=== PATIENT | male | born 1995 | race Caucasian/White ===

== ENCOUNTER 2017-11-16 00:46 | Emergency (ER) | payer SELFPAY ==
[~2017-11-16] VITALS: Ht 190.5 cm; Wt 118.0 kg
[~2017-11-16 00:46] MED LIST: CEPH500C3 PO
[2017-11-16 00:51] VITALS: BP 143/65; PULSE 103; RESP 18; TEMP 98.4; O2SAT 96
[2017-11-16 01:49] LABS: AUTOMATED NEUTROPHIL # 4.2 TH/MM3 (1.8-7.7); BASOPHIL % 0.6 % (0.0-2.0); EOSINOPHIL # 0.2 TH/MM3 (0-0.4); EOSINOPHIL % 1.8 % (0.0-4.0); HEMATOCRIT 44.6 % (39.0-51.0); HEMOGLOBIN 15.7 GM/DL (13.0-17.0); LYMPH % 40.7 % (9.0-44.0); LYMPHOCYTE # 3.4 TH/MM3 (1.0-4.8); MEAN CELL VOLUME 88.6 FL (80.0-100.0); MEAN CORPUSCULAR HEMOGLOBIN 31.3 PG (27.0-34.0); MEAN CORPUSCULAR HGB CONC 35.3 % (32.0-36.0); MEAN PLATELET VOLUME 7.6 FL (7.0-11.0); MONO % 7.2 % (0.0-8.0); MONOCYTE # 0.6 TH/MM3 (0-0.9); NEUT % 49.7 % (16.0-70.0); PLATELET COUNT 311 TH/MM3 (150-450); RED BLOOD COUNT 5.03 MIL/MM3 (4.50-5.90); RED CELL DISTRIBUTION WIDTH 11.7 % (11.6-17.2); WHITE BLOOD COUNT 8.4 TH/MM3 (4.0-11.0)
[2017-11-16 02:05] LABS: ALKALINE PHOSPHATASE 68 U/L (45-117); TOTAL BILIRUBIN ADULT 0.7 MG/DL (0.2-1.0); TOTAL PROTEIN 7.8 GM/DL (6.4-8.2)
[2017-11-16 02:08] LABS: ALBUMIN 4.3 GM/DL (3.4-5.0); ALT (GPT) 30 U/L (12-78); AST (GOT) 30 U/L (15-37); BICARBONATE 25.6 MEQ/L (21.0-32.0); BLOOD UREA NITROGEN 14 MG/DL (7-18); CALCIUM 8.3 MG/DL (8.5-10.1); CHLORIDE 111 MEQ/L (98-107); CREATININE 1.26 MG/DL (0.60-1.30); GLOMERULAR FILTRATION RATE 70 ML/MIN (>89); GLUCOSE,RANDOM 99 MG/DL (74-106); SODIUM (NA) 148 MEQ/L (136-145)
[2017-11-16 02:11] LABS: ACETAMINOPHEN LESS THAN 2.0 MCG/ML (10.0-30.0)
--- NOTE | 2017-11-16 03:37 | PD ---
HPI Chief Complaint: Alcohol/Drug Intoxication Time Seen by Provider: 01:09 Travel History International Travel<30 days: No Contact w/Intl Traveler<30days: No Traveled to known affect area: No History of Present Illness HPI Patient is a 22-year-old male presenting to the emergency department voluntarily for psychiatric evaluation. Patient was brought in by the police. Patient reports that he has been drinking this evening. He states he feels depressed, this is been ongoing for a long time. He states that he feels suicidal and has thoughts of hurting himself. He reports a previous suicide attempt. He has no current plan. He denies any hallucinations or homicidal ideations. He denies any illicit drug use. He denies any excessive alcohol intake. Patient further denies any medical history. Symptom onset is unknown. [facility] Past Medical History Medical History: Denies Significant Hx Hypertension: Yes Tetanus Vaccination: < 5 Years Influenza Vaccination: No Past Surgical History Surgical History: Unable to Obtain Joint Replacement: Yes Social History Alcohol Use: Yes Tobacco Use: Yes (chewing) Substance Use: No Allergies-Medications (Allergen,Severity, Reaction): Coded Allergies: amoxicillin (Verified Allergy, Unknown, 11/16/17) Reported Meds & Prescriptions Reported Meds & Active Scripts Active Keflex (Cephalexin Monohydrate) 500 Mg Cap 500 Mg PO QID 7 Days Review of Systems Except as stated in HPI: all other systems reviewed are Neg Psychiatric: Positive: Depression, Suicidal Ideations, Substance Abuse Physical Exam Exam Limitations: Intoxication Narrative GENERAL: Well-developed, well-nourished, alert male. Appears intoxicated, in no acute distress. SKIN: Warm and dry. HEAD: Atraumatic. Normocephalic. EYES: Pupils equal and round. No scleral icterus. No injection or drainage. ENT: No nasal bleeding or discharge. Mucous membranes pink and moist. NECK: Trachea midline. No JVD. CARDIOVASCULAR: Regular rate and rhythm. RESPIRATORY: No accessory muscle use. Clear to auscultation. Breath sounds equal bilaterally. GASTROINTESTINAL: Abdomen soft, non-tender, nondistended. Hepatic and splenic margins not palpable. MUSCULOSKELETAL: Extremities without clubbing, cyanosis, or edema. No obvious deformities. NEUROLOGICAL: Awake and alert. No obvious cranial nerve deficits. Motor grossly within normal limits. Five out of 5 muscle strength in the arms and legs. Normal speech. PSYCHIATRIC: Depressed mood and affect; insight and judgment normal. Data Data Last Documented VS Vital Signs Date Time Temp Pulse Resp B/P (MAP) Pulse Ox O2 Delivery O2 Flow Rate FiO2 11/16/17 00:51 98.4 103 18 143/65 (91) 96 Orders Orders Complete Blood Count With Diff (11/16/17 01:14) Comprehensive Metabolic Panel (11/16/17 01:14) Thyroid Stimulating Hormone (11/16/17 01:14) Psych Screen (11/16/17 01:14) Drug Screen, Random Urine (11/16/17 01:14) Alcohol (Ethanol) (11/16/17 01:14) Salicylates (Aspirin) (11/16/17 01:14) Tylenol (Acetaminophen) (11/16/17 01:14) Labs Laboratory Tests Test 11/16/17 01:15 White Blood Count 8.4 TH/MM3 Red Blood Count 5.03 MIL/MM3 Hemoglobin 15.7 GM/DL Hematocrit 44.6 % Mean Corpuscular Volume 88.6 FL Mean Corpuscular Hemoglobin 31.3 PG Mean Corpuscular Hemoglobin Concent 35.3 % Red Cell Distribution Width 11.7 % Platelet Count 311 TH/MM3 Mean Platelet Volume 7.6 FL Neutrophils (%) (Auto) 49.7 % Lymphocytes (%) (Auto) 40.7 % Monocytes (%) (Auto) 7.2 % Eosinophils (%) (Auto) 1.8 % Basophils (%) (Auto) 0.6 % Neutrophils # (Auto) 4.2 TH/MM3 Lymphocytes # (Auto) 3.4 TH/MM3 Monocytes # (Auto) 0.6 TH/MM3 Eosinophils # (Auto) 0.2 TH/MM3 Basophils # (Auto) 0.0 TH/MM3 CBC Comment DIFF FINAL Differential Comment Blood Urea Nitrogen 14 MG/DL Creatinine 1.26 MG/DL Random Glucose 99 MG/DL Total Protein 7.8 GM/DL Albumin 4.3 GM/DL Calcium Level 8.3 MG/DL Alkaline Phosphatase 68 U/L Aspartate Amino Transf (AST/SGOT) 30 U/L Alanine Aminotransferase (ALT/SGPT) 30 U/L Total Bilirubin 0.7 MG/DL Sodium Level 148 MEQ/L Potassium Level 4.4 MEQ/L Chloride Level 111 MEQ/L Carbon Dioxide Level 25.6 MEQ/L Anion Gap 11 MEQ/L Estimat Glomerular Filtration Rate 70 ML/MIN Thyroid Stimulating Hormone 3rd Gen 0.950 uIU/ML Salicylates Level LESS THAN 1.7 MG/DL Acetaminophen Level LESS THAN 2.0 MCG/ML Ethyl Alcohol Level 290 MG/DL MDM Medical Decision Making Medical Screen Exam Complete: Yes Emergency Medical Condition: Yes Interpretation(s) Laboratory Tests Test 11/16/17 01:15 White Blood Count 8.4 TH/MM3 Red Blood Count 5.03 MIL/MM3 Hemoglobin 15.7 GM/DL Hematocrit 44.6 % Mean Corpuscular Volume 88.6 FL Mean Corpuscular Hemoglobin 31.3 PG Mean Corpuscular Hemoglobin Concent 35.3 % Red Cell Distribution Width 11.7 % Platelet Count 311 TH/MM3 Mean Platelet Volume 7.6 FL Neutrophils (%) (Auto) 49.7 % Lymphocytes (%) (Auto) 40.7 % Monocytes (%) (Auto) 7.2 % Eosinophils (%) (Auto) 1.8 % Basophils (%) (Auto) 0.6 % Neutrophils # (Auto) 4.2 TH/MM3 Lymphocytes # (Auto) 3.4 TH/MM3 Monocytes # (Auto) 0.6 TH/MM3 Eosinophils # (Auto) 0.2 TH/MM3 Basophils # (Auto) 0.0 TH/MM3 CBC Comment DIFF FINAL Differential Comment Blood Urea Nitrogen 14 MG/DL Creatinine 1.26 MG/DL Random Glucose 99 MG/DL Total Protein 7.8 GM/DL Albumin 4.3 GM/DL Calcium Level 8.3 MG/DL Alkaline Phosphatase 68 U/L Aspartate Amino Transf (AST/SGOT) 30 U/L Alanine Aminotransferase (ALT/SGPT) 30 U/L Total Bilirubin 0.7 MG/DL Sodium Level 148 MEQ/L Potassium Level 4.4 MEQ/L Chloride Level 111 MEQ/L Carbon Dioxide Level 25.6 MEQ/L Anion Gap 11 MEQ/L Estimat Glomerular Filtration Rate 70 ML/MIN Thyroid Stimulating Hormone 3rd Gen 0.950 uIU/ML Salicylates Level LESS THAN 1.7 MG/DL Acetaminophen Level LESS THAN 2.0 MCG/ML Ethyl Alcohol Level 290 MG/DL Vital Signs Date Time Temp Pulse Resp B/P (MAP) Pulse Ox O2 Delivery O2 Flow Rate FiO2 11/16/17 00:51 98.4 103 18 143/65 (91) 96 Differential Diagnosis Substance abuse versus intoxication versus metabolic abnormality versus depression versus suicidal ideations versus other Narrative Course Patient is a 22-year-old male presented to emerge department for psychiatric evaluation. Patient is clearly intoxicated. He reports feeling depressed and on more than one occasion reported suicidal ideations. For this reason the Santoro act was initiated. Mental health screening discussed with the patient. Psychiatric screen ordered. Labs reviewed, no acute findings identified. Patient is intoxicated with a blood alcohol level of 290. Patient is medically cleared for psych eval. Diagnosis Primary Impression: Medical clearance for psychiatric admission Additional Impression: Alcohol intoxication Qualified Codes: F10.920 - Alcohol use, unspecified with intoxication, uncomplicated Condition: Stable Elle Ibarra November 16, 2017 03:37
[2017-11-16 08:00] VITALS: BP 138/62; PULSE 74; RESP 16; TEMP 98.2; O2SAT 98
--- NOTE | 2017-11-16 09:55 | PD ---
History of Present Illness Chief Complaint: Alcohol/Drug Intoxication Time Seen by Provider: 09:10 Travel History International Travel<30 Days: No Contact w/Intl Traveler<30days: No Known affected area: No History of Present Illness: Patient is a 22 y/o male who was placed under a [place]oro Act by ELIZABETH Wilson. Santoro Act states, " patient has been depressed for awhile and states that has been thinking about killing himself. Reports previous attempts. Chart reviewed and discussed with ELIZABETH Rios and MILAN Viera. Patient in room D-47 in the Emergency Room sitting on the side of the bed. He is well nourished, well dressed and looks his stated age. Alert and oriented x 4. Steady gait. Good fund of knowledge. Good concentration and focus. Mood is euthymic and affect is consistent with mood . Patient states that he went out to a friend house last night and drank too much. He does recall being transported to the Emergency Department , but does not recall ever stating that he is depressed or suicidal. His alcohol level on admission to the ED was 290. He states that he lives in [place] with his roommates. 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 He has no past psychiatric history. He endorses no suicidal or homicidal ideations. He endorses no depression today. Patient is at low risk for self harm. Based on the patient's presentation will lift the Santoro Act. Dx: Mood Disorder, alcohol induced. PFSH Past Medical History Narrative Medical No past psychiatric history. Medical History: Denies Significant Hx Hypertension: Yes Tetanus Vaccination: < 5 Years Influenza Vaccination: No Past Surgical History Surgical History: Unable to Obtain Joint Replacement: Yes Psychiatric History Social History Hx Alcohol Use: Yes Hx Tobacco Use: Yes (chewing) Hx Substance Use: No Allergies-Medications (Allergen,Severity, Reaction): Coded Allergies: amoxicillin (Verified Allergy, Unknown, 11/16/17) Reported Meds & Prescriptions Reported Meds & Active Scripts Active Keflex (Cephalexin Monohydrate) 500 Mg Cap 500 Mg PO QID 7 Days Mental Status Examination Appearance: Appropriate Consciousness: Alert Orientation: x4 Motor Activity: Normal gait Speech: Unremarkable Language: Adequate Fund of Knowledge: Adequate Attention and Concentration: Adequate Memory: Unremarkable Mood: Appropriate Affect: Appropriate Thought Process & Associations: Intact Thought Content: Appropriate Hallucination Type: None Delusion Type: None Suicidal Ideation: No Suicidal Plan: No Suicidal Intention: No Homicidal Ideation: No Homicidal Plan: No Homicidal Intention: No Insight: Adequate Judgment: Adequate [facility] Medical Decision Making Medical Record Reviewed: Yes Assessment/Plan Patient is a 22 y/o male who presented to the Emergency Department under a [place] Act. Patient had an alcohol level of 290. This morning patient is alert and oriented,good concentration and focus, mood is euthymic. He acknowledges that he went to friends house and drank too much. He has no past psychiatric history. He endorses no suicidal or homicidal ideations. Patient is of low risk for self harm. Based on patient's presentation and assessment will lift the Santoro Act. Patient denies depression. He may follow up at [facility] if he feels that depression is of concern. Orders Orders Complete Blood Count With Diff (11/16/17 01:14) Comprehensive Metabolic Panel (11/16/17 01:14) Thyroid Stimulating Hormone (11/16/17 01:14) Psych Screen (11/16/17 01:14) Drug Screen, Random Urine (11/16/17 01:14) Alcohol (Ethanol) (11/16/17 01:14) Salicylates (Aspirin) (11/16/17 01:14) Tylenol (Acetaminophen) (11/16/17 01:14) Diet Regular Basic (11/16/17 Breakfast) Results Vital Signs Date Time Temp Pulse Resp B/P (MAP) Pulse Ox O2 Delivery O2 Flow Rate FiO2 11/16/17 00:51 98.4 103 18 143/65 (91) 96 Laboratory Tests Test 11/16/17 01:15 11/16/17 07:36 White Blood Count 8.4 Red Blood Count 5.03 Hemoglobin 15.7 Hematocrit 44.6 Mean Corpuscular Volume 88.6 Mean Corpuscular Hemoglobin 31.3 Mean Corpuscular Hemoglobin Concent 35.3 Red Cell Distribution Width 11.7 Platelet Count 311 Mean Platelet Volume 7.6 Neutrophils (%) (Auto) 49.7 Lymphocytes (%) (Auto) 40.7 Monocytes (%) (Auto) 7.2 Eosinophils (%) (Auto) 1.8 Basophils (%) (Auto) 0.6 Neutrophils # (Auto) 4.2 Lymphocytes # (Auto) 3.4 Monocytes # (Auto) 0.6 Eosinophils # (Auto) 0.2 Basophils # (Auto) 0.0 CBC Comment DIFF FINAL Differential Comment Blood Urea Nitrogen 14 Creatinine 1.26 Random Glucose 99 Total Protein 7.8 Albumin 4.3 Calcium Level 8.3 Alkaline Phosphatase 68 Aspartate Amino Transf (AST/SGOT) 30 Alanine Aminotransferase (ALT/SGPT) 30 Total Bilirubin 0.7 Sodium Level 148 Potassium Level 4.4 Chloride Level 111 Carbon Dioxide Level 25.6 Anion Gap 11 Estimat Glomerular Filtration Rate 70 Thyroid Stimulating Hormone 3rd Gen 0.950 Salicylates Level LESS THAN 1.7 Acetaminophen Level LESS THAN 2.0 Ethyl Alcohol Level 290 Urine Opiates Screen NEG Urine Barbiturates Screen NEG Urine Amphetamines Screen NEG Urine Benzodiazepines Screen NEG Urine Cocaine Screen NEG Urine Cannabinoids Screen NEG Diagnosis Primary Impression: Alcohol-induced mood disorder Referrals: [facility] Disposition: 01 DISCHARGE HOME Condition: Stable EsmeSuly castaneda ELIZABETH November 16, 2017 09:55
--- NOTE | 2017-11-16 10:01 | PD ---
Data Data Last Documented VS Vital Signs Date Time Temp Pulse Resp B/P (MAP) Pulse Ox O2 Delivery O2 Flow Rate FiO2 11/16/17 00:51 98.4 103 18 143/65 (91) 96 Orders Orders Complete Blood Count With Diff (11/16/17 01:14) Comprehensive Metabolic Panel (11/16/17 01:14) Thyroid Stimulating Hormone (11/16/17 01:14) Psych Screen (11/16/17 01:14) Drug Screen, Random Urine (11/16/17 01:14) Alcohol (Ethanol) (11/16/17 01:14) Salicylates (Aspirin) (11/16/17 01:14) Tylenol (Acetaminophen) (11/16/17 01:14) Diet Regular Basic (11/16/17 Breakfast) Labs Laboratory Tests Test 11/16/17 01:15 11/16/17 07:36 White Blood Count 8.4 TH/MM3 Red Blood Count 5.03 MIL/MM3 Hemoglobin 15.7 GM/DL Hematocrit 44.6 % Mean Corpuscular Volume 88.6 FL Mean Corpuscular Hemoglobin 31.3 PG Mean Corpuscular Hemoglobin Concent 35.3 % Red Cell Distribution Width 11.7 % Platelet Count 311 TH/MM3 Mean Platelet Volume 7.6 FL Neutrophils (%) (Auto) 49.7 % Lymphocytes (%) (Auto) 40.7 % Monocytes (%) (Auto) 7.2 % Eosinophils (%) (Auto) 1.8 % Basophils (%) (Auto) 0.6 % Neutrophils # (Auto) 4.2 TH/MM3 Lymphocytes # (Auto) 3.4 TH/MM3 Monocytes # (Auto) 0.6 TH/MM3 Eosinophils # (Auto) 0.2 TH/MM3 Basophils # (Auto) 0.0 TH/MM3 CBC Comment DIFF FINAL Differential Comment Blood Urea Nitrogen 14 MG/DL Creatinine 1.26 MG/DL Random Glucose 99 MG/DL Total Protein 7.8 GM/DL Albumin 4.3 GM/DL Calcium Level 8.3 MG/DL Alkaline Phosphatase 68 U/L Aspartate Amino Transf (AST/SGOT) 30 U/L Alanine Aminotransferase (ALT/SGPT) 30 U/L Total Bilirubin 0.7 MG/DL Sodium Level 148 MEQ/L Potassium Level 4.4 MEQ/L Chloride Level 111 MEQ/L Carbon Dioxide Level 25.6 MEQ/L Anion Gap 11 MEQ/L Estimat Glomerular Filtration Rate 70 ML/MIN Thyroid Stimulating Hormone 3rd Gen 0.950 uIU/ML Salicylates Level LESS THAN 1.7 MG/DL Acetaminophen Level LESS THAN 2.0 MCG/ML Ethyl Alcohol Level 290 MG/DL Urine Opiates Screen NEG Urine Barbiturates Screen NEG Urine Amphetamines Screen NEG Urine Benzodiazepines Screen NEG Urine Cocaine Screen NEG Urine Cannabinoids Screen NEG MDM Medical Record Reviewed: Yes Supervised Visit with ANDERSON: No Narrative Course Please read previous providers notes for complete history of present illness. This patient was brought in under [employer] act yesterday evening. He was intoxicated with an alcohol level of 290 and he was voicing some suicidal thoughts. He is now sober and is denying any past or present thoughts of self- harm or feelings of depression. 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 He was seen by the psychiatry team and his Santoro act has been lifted and he has been cleared by psychiatry. He has no medical issues that would warrant further hospitalization. He is stable for discharge. Diagnosis Primary Impression: Alcohol-induced mood disorder Referrals: [facility]Other Pt SpecificInfo: No Change to Meds Disposition: 01 DISCHARGE HOME Condition: Stable Tho Rand November 16, 2017 10:01
[2017-11-16 10:45] VITALS: BP 138/77
== END 2017-11-16 10:54 | disposition home or self-care (01) ==
LOC: NEPD 00:46
DX: F10.14 Alcohol abuse with alcohol-induced mood disorder (principal); F10.129 Alcohol abuse with intoxication, unspecified; F17.220 Nicotine dependence, chewing tobacco, uncomplicated; Y90.8 Blood alcohol level of 240 mg/100 ml or more
CPT/HCPCS: 80053; 80307; 84443; 85025; 99283